=== PATIENT | female | born 2000 | race Two or more races ===

== ENCOUNTER 2024-02-22 11:43 | Observation (INO) | payer MEDICAID ==
--- NOTE | 2024-02-22 13:02 | DVH ---
Procedure: US BIOPHYSICAL PROFILE 02/22/2024 12:38 PM Indication: Nuchal Cord Comparison: None Technique: Sonogram of gravid uterus utilizing grayscale and color techniques. FINDINGS: Single living intrauterine gestation. Presentation: Cephalic Placenta: Posterior without previa or abruption heart rate: 124 bpm LISS: 13 cm Maternal cervix: Not visualized Other: The umbilical cord is seen draped around the neck Biophysical Profile: breathing score: 2 movement score: 2 tone: 2 Quantitative LISS score: 2 Total score: 8/8 IMPRESSION: 1. Single living as above. 2. Biophysical profile score: 8/8. 3. Nuchal cord.
--- NOTE | 2024-02-22 13:42 | DVHDS2 ---
Physician Discharge Progress N Final Diagnosis: double nuchal cord Operations or Procedures: Operations or Procedures nst,sono Condition on Discharge: Good Disposition: Home Discharge Instructions: Diet: Regular Activity: Light activity Medications: na Follow Up Care: Specialist: 4d Discharge Statement: "Patient was advised to return to the ER or call 911 if any headaches, dizziness, shortness of breath, chest pain, abdominal pain, bleeding, fevers, or worsening of medical condition. Patient was counseled about treatment plan, medications, possible side effects, patientverbalized understanding. All questions were answered to the best of my ability. This discharge took greater then 30 minutes in planning, reviewing documentation, counseling the patient, and discussing with other team members." JOHANA FRANCISCO DO Feb 22, 2024 13:42
== END 2024-02-22 14:10 | disposition home or self-care (01) ==
LOC: LDRP 11:43 → UNDOADMOB 11:43 → LDRP 12:23
PROVIDERS: ADMIT Obstetrics & Gynecology; ATTEND Obstetrics & Gynecology
DX: O69.81X0 Labor and delivery complicated by cord around neck, without compression, not applicable or unspecified (principal); Z79.899 Other long term (current) drug therapy; Z98.890 Other specified postprocedural states; Z3A.34 34 weeks gestation of pregnancy
CPT/HCPCS: 59025; 76818; 81002; 94760; G0378

== ENCOUNTER 2024-02-29 11:26 | Observation (INO) | payer MEDICAID ==
--- NOTE | 2024-02-29 12:47 | DVH ---
BIOPHYSICAL PROFILE HISTORY: NUCHAL TECHNIQUE: Multiple transabdominal real-time grayscale sonographic images through the gravid uterus of the fetus with duplex Doppler color flow and M-mode spectral analysis FINDINGS: BIOPHYSICAL PROFILE: breathing score: 2 movement score: 2 tone score: 2 Quantitative LISS score: 2 (LISS: 11.9 Cm.) Total score: 8/8 Single live fetus in cephalic presentation. heart rate 166 beats per minute. Posterior placenta without previa or abruption No evidence for nuchal cord on the provided images. IMPRESSION: 1. Biophysical profile score: 8/8 2. No evidence for nuchal cord on the provided images. HS:Y
[2024-02-29] MEDS ORDERED: PREN-96 PO (13:01)
--- NOTE | 2024-02-29 13:54 | DVHDS2 ---
Physician Discharge Progress N Final Diagnosis: nuchal cord Operations or Procedures: Operations or Procedures nst,sono Condition on Discharge: Good Disposition: Home Discharge Instructions: Diet: Regular Activity: No Restrictions, As Tolerated Medications: na Follow Up Care: Specialist: 1w Discharge Statement: "Patient was advised to return to the ER or call 911 if any headaches, dizziness, shortness of breath, chest pain, abdominal pain, bleeding, fevers, or worsening of medical condition. Patient was counseled about treatment plan, medications, possible side effects, patientverbalized understanding. All questions were answered to the best of my ability. This discharge took greater then 30 minutes in planning, reviewing documentation, counseling the patient, and discussing with other team members." JOHANA FRANCISCO DO Feb 29, 2024 13:54
== END 2024-02-29 13:09 | disposition home or self-care (01) ==
LOC: UNDOADMOB 11:26 → LDRP 11:26 → UNDODISOB 13:09
PROVIDERS: ADMIT Obstetrics & Gynecology; ATTEND Obstetrics & Gynecology
DX: O69.81X0 Labor and delivery complicated by cord around neck, without compression, not applicable or unspecified (principal); Z3A.35 35 weeks gestation of pregnancy; Z79.899 Other long term (current) drug therapy
CPT/HCPCS: 59025; 76818; 81002; 94760; G0378

== ENCOUNTER 2024-03-08 09:30 | Observation (INO) | payer MEDICAID ==
[~2024-03-08 09:30] MED LIST: PREN-96 PO
--- NOTE | 2024-03-08 11:20 | DVH ---
CLINICAL HISTORY: Nuchal Cord COMPARISON: US BIOPHYSICAL PROFILE on DOS: 02/29/24, US BIOPHYSICAL PROFILE on DOS: 02/22/24 TECHNIQUE: biophysical profile was performed. Transabdominal sonographic images of the fetus we re obtained. FINDINGS: The fetus is in cephalic position. heart rate measures 136 BPM. Amniotic fluid index measures 13.9 cm. The placenta is fundal in position. No nuchal cord visualized. BPP profile is an overall score of 8/8, with 2/2 points for breathing, with at least one episode of breathing over a 30 second duration during a 30 minute observation, 2/2 points for m ovements, with 3 or more discrete body or limb movements, 2/2 points for tone, with one or more episodes of extremity extension with return to flexion, or opening and closing of hand, and 2/ 2 points for amniotic fluid, with at least 1 pocket of amniotic fluid that measures 2 cm in 2 perpend icular planes. IMPRESSION: 1. BPP score of 8/8. 2. No nuchal cord visualized.
--- NOTE | 2024-03-08 18:13 | DVHDS2 ---
Physician Discharge Progress N Final Diagnosis: testing for nuchal cord that has now resolved Operations or Procedures: Operations or Procedures 24yo IUP@36.3wks, +FM/denies UCs/VB VSS UA wnl NST reactive BPP wnl FKC/PTL precautions reviewed Other Interventions Other Interventions [address] [address] Ph: [phone] DIAGNOSTIC IMAGING Diagnostic Imaging Report : [id number] Signed PATIENT: LISA BANKS ACCT: [id number] UNIT: [id number] : 2000 LOC: [facility] ROOM / BED: [facility] / A AGE / SEX: 24 / F ADM STATUS: ADM IN SERVICE 1035 ORDERING PHYSICIAN: KARLOS ANN CNM PROCEDURE(s): BPP - BIOPHYSICAL PROFILE REASON: Nuchal Cord ORDER NUMBER(s): [id number], ACCESSION NUMBER(s): [id number] CLINICAL HISTORY: Nuchal Cord COMPARISON: US BIOPHYSICAL PROFILE on DOS: 02/29/24, US BIOPHYSICAL PROFILE on DOS: 02/22/24 TECHNIQUE: biophysical profile was performed. Transabdominal sonographic images of the fetus were obtained. FINDINGS: The fetus is in cephalic position. heart rate measures 136 BPM. Amniotic fluid index measures 13.9 cm. The placenta is fundal in position. No nuchal cord visualized. BPP profile is an overall score of 8/8, with 2/2 points for breathing, with at least one episode of breathing over a 30 second duration during a 30 minute observation, 2/2 points for movements, with 3 or more discrete body or limb movements, 2/2 points for tone, with one or more ep isodes of extremity extension with return to flexion, or opening and closing of hand, and 2/2 points for amniotic fluid, with at least 1 pocket of amniotic fluid that measures 2 cm in 2 perpendicular planes. IMPRESSION: 1. BPP score of 8/8. 2. No nuchal cord visualized. ATED BY: MINA MANN DO DICTATED DATE/TIME: 03/08/24 1118 SIGNED BY: MINA MANN DO SIGNED DATE/TIME: 03/08/24 1118 CC: Condition on Discharge: Stable Disposition: Home Discharge Instructions: Diet: Regular Activity: No Restrictions, As Tolerated Medications: see med list Follow Up Care: Specialist: f/u with Dr. Watters in office as scheduled Discharge Statement: "Patient was advised to return to the ER or call 911 if any headaches, dizziness, shortness of breath, chest pain, abdominal pain, bleeding, fevers, or worsening of medical condition. Patient was counseled about treatment plan, medications, possible side effects, patientverbalized understanding. All questions were answered to the best of my ability. This discharge took greater then 30 minutes in planning, reviewing documentation, counseling the patient, and discussing with other team members." KARLOS ANN [facility] Mar 08, 2024 18:13
== END 2024-03-08 11:58 | disposition home or self-care (01) ==
LOC: LDRP 10:00 → UNDOADMOB 10:00 → LDRP 10:37
PROVIDERS: ADMIT Obstetrics & Gynecology; ATTEND Obstetrics & Gynecology
DX: Z36.89 Encounter for other specified antenatal screening (principal); Z3A.36 36 weeks gestation of pregnancy; Z79.899 Other long term (current) drug therapy
CPT/HCPCS: 59025; 76818; 81002; 94760; G0378

== ENCOUNTER 2024-03-23 12:55 | Observation (INO) | payer MEDICAID ==
--- NOTE | 2024-03-23 14:48 | DVH ---
BIOPHYSICAL PROFILE HISTORY: double nuchal TECHNIQUE: Multiple transabdominal real-time grayscale sonographic images through the gravid uterus of the fetus with duplex Doppler color flow and M-mode spectral analysis FINDINGS: BIOPHYSICAL PROFILE: breathing score: 2 movement score: 2 tone score: 2 Quantitative LISS score: 2 (LISS: 14 Cm.) Total score: 8 The cervix was not seen Single live fetus in cephalic presentation. heart rate 152 beats per minute. Grade III fundal placenta without previa or abruption IMPRESSION: Biophysical profile score: 8 Possible double nuchal cord.
--- NOTE | 2024-03-23 16:34 | DVHDS2 ---
Physician Discharge Progress N Final Diagnosis: Encounter for surveillance Suspected nuchal cord x 2 Operations or Procedures: Operations or Procedures NST/BPP/LISS [address] [address] Ph: [phone] DIAGNOSTIC IMAGING Diagnostic Imaging Report : [id number] Signed PATIENT: LISA BANKS ACCT: [id number] UNIT: [id number] : 2000 LOC: [facility] ROOM / BED: [facility] / A AGE / SEX: 24 / F ADM STATUS: ADM IN SERVICE 1309 ORDERING PHYSICIAN: SUYAPA CASTAÑEDA DO PROCEDURE(s): BPP - BIOPHYSICAL PROFILE REASON: double nuchal ORDER NUMBER(s): [id number], ACCESSION NUMBER(s): [id number] BIOPHYSICAL PROFILE HISTORY: double nuchal TECHNIQUE: Multiple transabdominal real-time grayscale sonographic images through the gravid uterus of the fetus with duplex Doppler color flow and M-mode spectral analysis FINDINGS: BIOPHYSICAL PROFILE: breathing score: 2 movement score: 2 tone score: 2 Quantitative LISS score: 2 (LISS: 14 Cm.) Total score: 8 The cervix was not seen Single live fetus in cephalic presentation. heart rate 152 beats per mi nute. Grade III fundal placenta without previa or abruption IMPRESSION: Biophysical profile score: 8 Possible double nuchal cord. Condition on Discharge: Stable Disposition: Home Discharge Instructions: Diet: Regular Activity: No Restrictions, As Tolerated Follow Up/Referral: as scheduled Medications: N/A Follow Up Care: Discharge Statement: "Patient was advised to return to the ER or call 911 if any headaches, dizziness, shortness of breath, chest pain, abdominal pain, bleeding, fevers, or worsening of medical condition. Patient was counseled about treatment plan, medications, possible side effects, patientverbalized understanding. All questions were answered to the best of my ability. This discharge took greater then 30 minutes in planning, reviewing documentation, counseling the patient, and discussing with other team members." SUYAPA CASTAÑEDA DO Mar 23, 2024 16:34
== END 2024-03-23 14:41 | disposition home or self-care (01) ==
LOC: LDRP 12:55
PROVIDERS: ADMIT Obstetrics & Gynecology; ATTEND Obstetrics & Gynecology
DX: Z36.89 Encounter for other specified antenatal screening (principal); Z3A.38 38 weeks gestation of pregnancy; Z79.899 Other long term (current) drug therapy
CPT/HCPCS: 59025; 76818; 81002; 94760; G0378

== ENCOUNTER 2024-03-27 15:10 | Observation (INO) | payer MEDICAID ==
--- NOTE | 2024-03-27 16:14 | DVH ---
BIOPHYSICAL PROFILE HISTORY: nuchal x 2 TECHNIQUE: Multiple transabdominal real-time grayscale sonographic images through the gravid uterus of the fetus with duplex Doppler color flow and M-mode spectral analysis FINDINGS: BIOPHYSICAL PROFILE: breathing score: 2 movement score: 2 tone score: 2 Quantitative LISS score: 2 (LISS: 12.6 Cm.) Total score: 8/8 The cervix is not seen Single live fetus in cephalic presentation. heart rate 145 beats per minute. Grade 3 fundal placenta without previa or abruption Biophysical profile score 8/8 corresponding to an ASHER of 04/02/24 IMPRESSION: Biophysical profile score: 8/8
[2024-03-27 17:47] LABS: Basophils # (auto) 0 10 ^3/uL (0-0.2); Basophils % (auto) 0.3 % (0.0-2.0); Eosinophils # (auto) 0.2 10 ^3/uL (0-0.8); Eosinophils % (auto) 2.1 % (0.0-7.0); Hematocrit 40.6 % (36.0-46.0); Hemoglobin 14.1 g/dL (12.2-16.2); Lymphocytes # (auto) 1.9 10 ^3/uL (0.4-5.4); Mean Corpuscular Hemoglobin 32.5 pg (28.0-32.0); Mean Corpuscular Hgb Conc. 34.7 g/dL (32.0-36.0); Mean Corpuscular Volume 93.6 fL (80.0-100.0); Monocytes # (auto) 0.6 10 ^3/uL (0-1.3); Monocytes % (auto) 5.8 % (0.0-12.0); Neutrophils # (auto) 7.1 10 ^3/uL (1.6-8.6); Neutrophils % (auto) 72.8 % (37.0-80.0); Nucleated Red Blood Cells % 0.1 %; Platelet Count (auto) 288 10^3/uL (140-450); Red Blood Cells 4.34 10^6/uL (4.0-5.20); Red Cell Distribution Width 13.6 % (11.8-14.3); White Blood Cell 9.7 10^3/uL (4.4-10.8)
[2024-03-27 18:00] LABS: INR 0.9 (0.9-1.15); Partial Thromboplastin Time 27.3 SEC (24.5-34.5); Prothrombin Time 9.6 sec (9.3-11.8)
[2024-03-27 18:11] LABS: Alanine Aminotransferase 29 U/L (7-40); Albumin 3.8 g/dL (3.2-4.8); Anion Gap 7 (5-15); Aspartate Aminotransferase 22 U/L (13-40); BUN/Creatinine Ratio 12.5 (10.0-20.0); Bilirubin, Total 0.4 mg/dL (0.2-1.0); Calcium 9.7 mg/dL (8.7-10.4); Carbon Dioxide 23 mmol/L (20-31); Glucose 79 mg/dL (74-106); Potassium 4.1 mmol/L (3.5-5.1); Sodium 138 mmol/L (136-145); Total Protein 6.4 g/dL (5.7-8.2); Uric Acid 4.9 mg/dL (3.1-7.8)
[2024-03-27 18:12] LABS: Alkaline Phosphatase 166 U/L (46-116); Blood Urea Nitrogen 8 mg/dL (9-23); Chloride 108 mmol/L (98-107)
[2024-03-27 18:26] LABS: Urine Bacteria None Seen /hpf (None Seen)
[2024-03-27 19:02] LABS: Protein, Urine 7.7 mg/dL (1-14)
[2024-03-27 19:04] LABS: Creatinine, Urine 60.82 mg/dL (30.0-125.0); Urine Protein/Creatinine Ratio 0.13
[2024-03-27 19:13] LABS: Amphetamine Screen, Urine Neg (NEGATIVE); Barbiturate Scree,Urine Neg (NEGATIVE); Benzodiazephine Screen, Urine Neg (NEGATIVE); Cannabinoid Screen, Urine Neg (NEGATIVE); Cocaine Screen, Urine Neg (NEGATIVE); Opiate Scree,Urine Neg (NEGATIVE); Phencyclidine Screen, Urine Neg (NEGATIVE)
[2024-03-27 19:14] LABS: Urine Blood Negative /uL (Negative); Urine Clarity Clear (Clear); Urine Color Light-Yellow (Yellow); Urine Protein, UAD Negative (Negative); Urine Specific Gravity 1.009 (1.001-1.035); Urine Squamous Epithelial Cell FEW /hpf (<5); Urine Urobilinogen Normal (Negative); Urine WBC 1 /hpf (0 - 5)
--- NOTE | 2024-03-27 20:15 | DVHDS2 ---
Physician Discharge Progress N Final Diagnosis: testing Operations or Procedures: Operations or Procedures 24yo IUP@39.1wks presents for NST/BPP for nuchal cord x2 at previous sono. +FM, denies UCs/LOF/VB/MABRY/vision changes/RUQ pain. VSS, initial BPs elevated but normotensive after cuff was adjusted NST reactive BPP wnl, no nuchal cord seen kick counts and Preeclampsia warning signs reviewed. Labor precautions given and when to return to the hospital. Dr. Watters consulted, wants pt to f/u in 3 days Laboratory Tests Test 03/27/24 16:40 03/27/24 17:33 Range/Units Urine Color Light-yellow Yellow Urine Clarity Clear Clear Urine pH 6.0 5.0-9.0 Urine Specific Mode 1.009 1.001-1.035 Urine Protein Negative Negative Urine Ketones Negative Negative Urine Blood Negative Negative /uL Urine Nitrite Negative Negative Urine Bilirubin Negative Negative Urine Urobilinogen Normal Negative mg/dL Urine Leukocyte Esterase Negative Negative /uL Urine RBC <1 0 - 4 /hpf Urine WBC 1 0 - 5 /hpf Urine Squamous Epithelial Cells Few <5 /hpf Urine Bacteria None seen None Seen /hpf Urine Creatinine 60.82 30.0-125.0 mg/dL Urine Protein/Creatinine Ratio 0.13 Urine Glucose Normal Normal mg/dL Urine Total Protein 7.7 1-14 mg/dL Urine Opiates Screen Neg NEGATIVE Urine Fentanyl Screen Neg NEGATIVE Urine Barbiturates Screen Neg NEGATIVE Urine Phencyclidine Screen Neg NEGATIVE Urine Amphetamines Screen Neg NEGATIVE Urine Benzodiazepines Screen Neg NEGATIVE Urine Cocaine Screen Neg NEGATIVE Urine Cannabinoids Screen Neg NEGATIVE White Blood Count 9.7 4.4-10.8 10^3/uL Red Blood Count 4.34 4.0-5.20 10^6/uL Hemoglobin 14.1 12.2-16.2 g/dL Hematocrit 40.6 36.0-46.0 % Mean Corpuscular Volume 93.6 80.0-100.0 fL Mean Corpuscular Hemoglobin 32.5 H 28.0-32.0 pg Mean Corpuscular Hemoglobin Concent 34.7 32.0-36.0 g/dL Red Cell Distribution Width 13.6 11.8-14.3 % Platelet Count 288 140-450 10^3/uL Mean Platelet Volume 8.6 6.9-10.8 fL Neutrophils (%) (Auto) 72.8 37.0-80.0 % Lymphocytes (%) (Auto) 19.0 10.0-50.0 % Monocytes (%) (Auto) 5.8 0.0-12.0 % Eosinophils (%) (Auto) 2.1 0.0-7.0 % Basophils (%) (Auto) 0.3 0.0-2.0 % Neutrophils # (Auto) 7.1 1.6-8.6 10 ^3/uL Lymphocytes # (Auto) 1.9 0.4-5.4 10 ^3/uL Monocytes # (Auto) 0.6 0-1.3 10 ^3/uL Eosinophils # (Auto) 0.2 0-0.8 10 ^3/uL Basophils # (Auto) 0 0-0.2 10 ^3/uL Nucleated Red Blood Cells 0.1 % Prothrombin Time 9.6 9.3-11.8 sec Prothrombin Time INR 0.90 0.9-1.15 Activated Partial Thromboplast Time 27.3 24.5-34.5 SEC D-Dimer, Quantitative 1.72 H 0.0-0.49 mg/L FEU Sodium Level 138 136-145 mmol/L Potassium Level 4.1 3.5-5.1 mmol/L Chloride Level 108 H 98-107 mmol/L Carbon Dioxide Level 23 20-31 mmol/L Anion Gap 7 5-15 Blood Urea Nitrogen 8 L 9-23 mg/dL Creatinine 0.64 0.550-1.02 mg/dL Glomerular Filtration Rate Calc 126 >90 mL/min BUN/Creatinine Ratio 12.5 10.0-20.0 Serum Glucose 79 74-106 mg/dL Uric Acid 4.9 3.1-7.8 mg/dL Calcium Level 9.7 8.7-10.4 mg/dL Total Bilirubin 0.4 0.2-1.0 mg/dL Aspartate Amino Transferase (AST) 22 13-40 U/L Alanine Aminotransferase (ALT) 29 7-40 U/L Alkaline Phosphatase 166 H 46-116 U/L Total Protein 6.4 5.7-8.2 g/dL Albumin 3.8 3.2-4.8 g/dL Condition on Discharge: Stable Disposition: Home Discharge Instructions: Diet: Regular Activity: No Restrictions, As Tolerated Medications: CONTINUE TAKING ALL CURRENT MEDICATIONS PREVIOUSLY PRESCRIBED BY DR WATTERS. Follow Up Care: Specialist: f/u in 3 days Discharge Statement: "Patient was advised to return to the ER or call 911 if any headaches, dizziness, shortness of breath, chest pain, abdominal pain, bleeding, fevers, or worsening of medical condition. Patient was counseled about treatment plan, medications, possible side effects, patientverbalized understanding. All questions were answered to the best of my ability. This discharge took greater then 30 minutes in planning, reviewing documentation, counseling the patient, and discussing with other team members." KARLOS ANN [facility] Mar 27, 2024 20:15
== END 2024-03-27 19:47 | disposition home or self-care (01) ==
LOC: LDRP 15:10 → UNDOADMOB 15:10 → LDRP 15:19 → UNDODISOB 19:47
PROVIDERS: ADMIT Obstetrics & Gynecology; ATTEND Obstetrics & Gynecology
DX: O69.81X0 Labor and delivery complicated by cord around neck, without compression, not applicable or unspecified (principal); Z3A.39 39 weeks gestation of pregnancy; Z79.899 Other long term (current) drug therapy; Z98.890 Other specified postprocedural states
CPT/HCPCS: 36415; 59025; 76818; 80053; 80307; 81001; 81002; 82570; 84156; 84550; 85025; 85379; 85610; 85730; 94760; G0378

== ENCOUNTER 2024-03-30 11:10 | Observation (INO) | payer MEDICAID ==
--- NOTE | 2024-03-30 12:10 | DVH ---
Procedure: US BIOPHYSICAL PROFILE 03/30/2024 11:21 AM Indication: PIH Comparison: US BIOPHYSICAL PROFILE on DOS: 03/27/24, US BIOPHYSICAL PROFILE on DOS: 03/23/24, US BIOPHY SICAL PROFILE on DOS: 03/08/24 Technique: Sonogram of gravid uterus utilizing grayscale and color techniques. FINDINGS: Single living intrauterine gestation. Presentation: Cephalic Placenta: Posterior, no previa or abruption heart rate: 130 bpm LISS: 4.5 cm, DVP: 4.8 cm Maternal cervix: Not visualized Other: No nuchal cord in the current exam. Biophysical Profile: breathing score: 2 movement score: 2 tone: 2 Quantitative LISS score: 2 Total score: 8/8 IMPRESSION: 1. Single living as above. 2. Biophysical profile score: 8/8.
[2024-03-30 12:43] LABS: Basophils # (auto) 0 10 ^3/uL (0-0.2); Basophils % (auto) 0.5 % (0.0-2.0); Eosinophils # (auto) 0.2 10 ^3/uL (0-0.8); Eosinophils % (auto) 2.8 % (0.0-7.0); Hematocrit 38.5 % (36.0-46.0); Hemoglobin 13.5 g/dL (12.2-16.2); Lymphocytes # (auto) 1.7 10 ^3/uL (0.4-5.4); Lymphocytes % (auto) 19.4 % (10.0-50.0); Mean Corpuscular Hemoglobin 32.9 pg (28.0-32.0); Mean Corpuscular Hgb Conc. 35.2 g/dL (32.0-36.0); Mean Corpuscular Volume 93.4 fL (80.0-100.0); Monocytes # (auto) 0.7 10 ^3/uL (0-1.3); Monocytes % (auto) 8.3 % (0.0-12.0); Platelet Count (auto) 288 10^3/uL (140-450); Red Blood Cells 4.12 10^6/uL (4.0-5.20); Red Cell Distribution Width 13.4 % (11.8-14.3); White Blood Cell 8.6 10^3/uL (4.4-10.8)
[2024-03-30 12:50] LABS: INR 0.89 (0.9-1.15); Partial Thromboplastin Time 27.1 SEC (24.5-34.5); Prothrombin Time 9.5 sec (9.3-11.8)
[2024-03-30 12:59] LABS: Alanine Aminotransferase 21 U/L (7-40); Albumin 3.5 g/dL (3.2-4.8); Anion Gap 8 (5-15); Aspartate Aminotransferase 21 U/L (13-40); BUN/Creatinine Ratio 14.3 (10.0-20.0); Calcium 9.6 mg/dL (8.7-10.4); Carbon Dioxide 21 mmol/L (20-31); Glucose 83 mg/dL (74-106); Potassium 3.8 mmol/L (3.5-5.1); Sodium 138 mmol/L (136-145); Uric Acid 5.2 mg/dL (3.1-7.8)
[2024-03-30 13:00] LABS: Bilirubin, Total 0.3 mg/dL (0.2-1.0); Total Protein 5.9 g/dL (5.7-8.2)
[2024-03-30 13:05] LABS: Alkaline Phosphatase 161 U/L (46-116); Blood Urea Nitrogen 8 mg/dL (9-23); Chloride 109 mmol/L (98-107)
[2024-03-30 13:48] LABS: Protein, Urine 8.3 mg/dL (1-14)
[2024-03-30 13:51] LABS: Creatinine, Urine 58.58 mg/dL (30.0-125.0); Urine Protein/Creatinine Ratio 0.14
[2024-03-30 13:53] LABS: Urine Blood Negative /uL (Negative); Urine Clarity Turbid (Clear); Urine Color Light-Yellow (Yellow); Urine Mucus FEW (None Seen); Urine Protein, UAD Negative (Negative); Urine Sperm PRESENT /hpf (None Seen); Urine Squamous Epithelial Cell MOD /hpf (<5); Urine Urobilinogen Normal (Negative); Urine WBC 6 /hpf (0 - 5)
[2024-03-30 13:54] LABS: Amphetamine Screen, Urine Neg (NEGATIVE); Barbiturate Scree,Urine Neg (NEGATIVE); Benzodiazephine Screen, Urine Neg (NEGATIVE); Cannabinoid Screen, Urine Neg (NEGATIVE); Cocaine Screen, Urine Neg (NEGATIVE); Opiate Scree,Urine Neg (NEGATIVE); Phencyclidine Screen, Urine Neg (NEGATIVE)
[2024-03-30 13:55] LABS: Urine Bacteria None Seen /hpf (None Seen)
--- NOTE | 2024-03-31 07:12 | DVHDS2 ---
Physician Discharge Progress N Final Diagnosis: pih ,nuchal cord Operations or Procedures: Operations or Procedures nst,sono Condition on Discharge: Good Disposition: Home Discharge Instructions: Diet: Regular Activity: No Restrictions, As Tolerated Medications: na Follow Up Care: Specialist: fu 2days for induction Discharge Statement: "Patient was advised to return to the ER or call 911 if any headaches, dizziness, shortness of breath, chest pain, abdominal pain, bleeding, fevers, or worsening of medical condition. Patient was counseled about treatment plan, medications, possible side effects, patientverbalized understanding. All questions were answered to the best of my ability. This discharge took greater then 30 minutes in planning, reviewing documentation, counseling the patient, and discussing with other team members." JOHANA FRANCISCO DO Mar 31, 2024 07:12
== END 2024-03-30 14:20 | disposition short-term general hospital (02) ==
LOC: LDRP 11:10
PROVIDERS: ADMIT Obstetrics & Gynecology; ATTEND Obstetrics & Gynecology
DX: O69.81X0 Labor and delivery complicated by cord around neck, without compression, not applicable or unspecified (principal); O13.3 Gestational [pregnancy-induced] hypertension without significant proteinuria, third trimester; Z3A.39 39 weeks gestation of pregnancy; Z79.899 Other long term (current) drug therapy
CPT/HCPCS: 36415; 59025; 76818; 80053; 80307; 81001; 81002; 82570; 84156; 84550; 85025; 85610; 85730; 94760; G0378

== ENCOUNTER 2024-04-01 04:39 | Inpatient (IN) | payer MEDICAID ==
[~2024-04-01] VITALS: Ht 165.1 cm; Wt 106.1 kg
[2024-04-01] MEDS ORDERED: NALBUPHINE HCL 10 MG/1ml INJECTION IM PRN (22:45)
[2024-04-01] MEDS ORDERED: NALBUPHINE HCL 10 MG/1ml INJECTION IV PRN (22:45)
[2024-04-01 23:15] LABS: Basophils # (auto) 0.1 10 ^3/uL (0-0.2); Basophils % (auto) 0.6 % (0.0-2.0); Eosinophils # (auto) 0.2 10 ^3/uL (0-0.8); Eosinophils % (auto) 2.4 % (0.0-7.0); Hemoglobin 13.7 g/dL (12.2-16.2); Lymphocytes # (auto) 2.1 10 ^3/uL (0.4-5.4); Lymphocytes % (auto) 21.8 % (10.0-50.0); Mean Corpuscular Hemoglobin 32.2 pg (28.0-32.0); Mean Corpuscular Hgb Conc. 34.2 g/dL (32.0-36.0); Mean Corpuscular Volume 94.2 fL (80.0-100.0); Monocytes # (auto) 0.7 10 ^3/uL (0-1.3); Monocytes % (auto) 6.9 % (0.0-12.0); Neutrophils # (auto) 6.5 10 ^3/uL (1.6-8.6); Neutrophils % (auto) 68.3 % (37.0-80.0); Platelet Count (auto) 271 10^3/uL (140-450); Red Blood Cells 4.25 10^6/uL (4.0-5.20); Red Cell Distribution Width 13.5 % (11.8-14.3); White Blood Cell 9.5 10^3/uL (4.4-10.8)
[2024-04-01 23:17] LABS: Urine Bacteria FEW /hpf (None Seen); Urine Blood Negative /uL (Negative); Urine Clarity Turbid (Clear); Urine Color Yellow (Yellow); Urine Mucus FEW (None Seen); Urine Protein, UAD TRACE (Negative); Urine Specific Gravity 1.027 (1.001-1.035); Urine Squamous Epithelial Cell MOD /hpf (<5); Urine Urobilinogen 2 mg/dL (Negative); Urine WBC 8 /hpf (0 - 5); Urine pH 7.5 (5.0-9.0)
--- NOTE | 2024-04-01 23:23 | DVHHP2 ---
OB CC & HPI Date Date of Admission: Apr 01, 2024 Patient Identification: : 1 Para: 0 EDC: Apr 02, 2024 EGA: 39w 6d Chief Complaints: Reason for admission: induction of labor Indication for induction: medical complication Admission Nurse Assessment Rev: Yes History of Present Complaints The patient is a 24-year-old female, , para 0, history of elevated BP during the past week. She is 39weeks and 6days based on LMP c/w 2nd trimester ultrasound with an estimated due date of 04/02/2024. Scheduled for IOL due to elevated BP as stated above Past Medical History Cardiac: No pertinent Hx Pulmonary: No pertinent Hx Central Nervous System: No pertinent Hx GI: No pertinent Hx Hemotology/Oncology: No pertinent Hx Hepatobiliary: No pertinent Hx Psychiatric: No pertinent Hx Musculoskeletal: No pertinent Hx Rheumotologic: No pertinent Hx Infectious Disease: No peritnent Hx ENT: No pertinent Hx Renal/: No pertinent Hx Endocrine: No pertinent Hx Dermatology: No pertinent Hx Past Surgical History: No pertinent Hx OB History OB History Care: Good Care Ultrasounds: Normal mid trimester US Obstetrical Complications: Pre-eclampsia Medical Complications: Cardiovascular Allergies: Coded Allergies: NO KNOWN ALLERGIES (Unverified , 01/29/10) Home Meds Reported Medications Vit W/ Ferrous Fumara ( One Daily) Daily Tab, 1 TAB PO DAILY, #90 TAB 3 Refills 02/29/24 Current Medications Current Medications Medications (Trade) Dose Ordered Sig/Cristy Route PRN Reason Start Time Stop Time Status Last Admin Lactated Ringer's 1,000 ml @ 125 mls/hr Q8H IV 04/01/24 22:45 Nalbuphine HCl (Nubain) 10 mg Q4HP PRN IM MODERATE PAIN (4-6 PAIN SCALE) 04/01/24 22:45 Nalbuphine HCl (Nubain) 10 mg Q4HP PRN IV MODERATE PAIN (4-6 PAIN SCALE) 04/01/24 22:45 Witch Mary (Tucks) 1 pad PRN PRN TOP PERINEAL AREA DISCOMFORT 04/01/24 22:45 Sodium Lauryl Sulfate (Phisoderm) 240 ml PRN PRN TOP PERINEAL AREA DISCOMFORT 04/01/24 22:45 Benzocaine (Dermoplast) 1 applic PRN PRN TOP PERINEAL AREA DISCOMFORT 04/01/24 22:45 Misoprostol (Cytotec) 50 mcg Q4HPRN PRN PO CERVICAL RIPENING 04/01/24 22:45 Lidocaine HCl (Xylocaine) 20 ml ONCE PRN IJ PERINEAL AREA DISCOMFORT 04/01/24 22:45 Family & Social History Family/Social History Past Family/Social History: non - contributory Blood Type: O+ Rubella: not immune RPR/VDRL: Negative GBS Status: Negative HBsAG: Negative Review of Systems Constitutional: No symptom reported Ears, Nose, & Throat: No symptom reported Eyes: No symptom reported Pulmonary/Respiratory: No symptom reported Cardiovascular: No symptom reported Gastrointestinal: No symptom reported Genitourinary: No symptom reported Musculoskeletal: No symptom reported Skin: No symptom reported Psychiatric: No symptom reported Endocrine: No symptom reported Hemotologic/Lymphatic: No symptom reported OB Admission Exam Physical Exam Cervical Dilatation: 1cm Effacement: 25% Station: -2 (VE by RN) Membranes: Intact Heart Rate: 140's Accelerations: Accelerations Present Decelerations: No Decelerations Jail Variability: Average (6-25) Contractions on Admission: 6-10 Minutes Apart Date/Time Contractions Began: 04/01/24 Frequency of Contractions: irregular Duration: 60 Intensity: Mild OB Plan Plan Admitting Diagnosis: IUP at 39w 6d Gestational HTN vs Pre Eclampsia PIH Plan: Induction Induction Methd: Misoprostol protocol Other Plan: IOL process, cervical ripening with medication, cervical ripening balloon, oxyt ocin etc including the risks, benefits and options discussed with the patient, her partner and her parents Informed consent obtained. Risk of pain, bleeding, infection, discussed with the patient and family Consent for possible blood transfusion obtained. All questions answered. Admit to Place for scheduled IOL Routine L&D admission orders Misoprostol per protocol EFM per policy & protocol Intrauterine resuscitation PRN Labor analgesia PRN Encourage frequent position change and ambulation to facilitate labor & descent Supportive Care Anticipate KOLTON LEONARD CNM Apr 01, 2024 23:23
[2024-04-01 23:24] LABS: Protein, Urine 24.8 mg/dL (1-14)
[2024-04-01 23:27] LABS: Creatinine, Urine 158.77 mg/dL (30.0-125.0); Urine Protein/Creatinine Ratio 0.16
[2024-04-01 23:28] LABS: Amphetamine Screen, Urine Neg (NEGATIVE); Barbiturate Scree,Urine Neg (NEGATIVE); Benzodiazephine Screen, Urine Neg (NEGATIVE); Cannabinoid Screen, Urine Neg (NEGATIVE); Cocaine Screen, Urine Neg (NEGATIVE); Opiate Scree,Urine Neg (NEGATIVE); Phencyclidine Screen, Urine Neg (NEGATIVE)
[2024-04-01 23:30] LABS: Alanine Aminotransferase 24 U/L (7-40); Albumin 3.7 g/dL (3.2-4.8); Anion Gap 7 (5-15); Aspartate Aminotransferase 22 U/L (13-40); BUN/Creatinine Ratio 16.4 (10.0-20.0); Bilirubin, Total 0.4 mg/dL (0.2-1.0); Blood Urea Nitrogen 10 mg/dL (9-23); Calcium 9.6 mg/dL (8.7-10.4); Carbon Dioxide 22 mmol/L (20-31); Glucose 83 mg/dL (74-106); Potassium 3.9 mmol/L (3.5-5.1); Sodium 138 mmol/L (136-145); Total Protein 6.3 g/dL (5.7-8.2); Uric Acid 5.1 mg/dL (3.1-7.8)
[2024-04-01 23:39] LABS: INR 0.89 (0.9-1.15); Partial Thromboplastin Time 27.6 SEC (24.5-34.5); Prothrombin Time 9.5 sec (9.3-11.8)
[2024-04-01 23:40] LABS: Alkaline Phosphatase 170 U/L (46-116); Chloride 109 mmol/L (98-107)
[2024-04-02] MEDS: miSOPROStol 50 MCG per PRE-CUT 1/2 TAB PO PRN (00:25)
[2024-04-02] MEDS: LIDOCAINE 2%HCL (LOCAL ANESTH.) INJ 20ML MDV IJ PRN (00:26)
[2024-04-02] MEDS: PHISODERM TOP SOLN 240ML BTL TOP PRN (00:26)
[2024-04-02] MEDS: DERMOPLAST 60ML BOTTLE TOP PRN (00:26)
[2024-04-02] MEDS: WITCH HAZEL-GLYCERIN PAD TOP PRN (00:26)
[2024-04-02] MEDS: LACTATED RINGER'S 1,000 ML IV SCH (00:27)
--- NOTE | 2024-04-02 07:52 | DVHPN2 ---
CNM Labor Progress Note Date and Time Seen Date Seen: Apr 02, 2024 Time Seen: 07:30 Subjective Patient reports: No new complaints Monitoring Method Monitoring Method: External Heart Rate Heart Rate Baseline: 125 Heart Rate Variability: Moderate Presence of FHR Accelerations: Yes Presence of FHR Decelerations: No Changes in Trends of Patterns: No Are all 5 Components of the FH: Yes Contractions Contractions Frequency: Other (2-5min) Duration of Contraction: 70 Contractions Intensity: Mild Contractions Resting Tone: Relaxed Membranes Membranes: Intact Vaginal Exam Vag Exam Deferred: No Vaginal Exam Dilation: 1 Vaginal Exam Effacement: 50 Vaginal Exam Station: -2 Vaginal Exam Presentation: VTX Vaginal Exam Show: None Medications Medications - Pitocin: No Medication - Epidural: No Medication - Other Misoprostol #1 @00:25 Lab Results Lab Results Current Medications Medications (Trade) Dose Ordered Sig/Cristy Start Time Stop Time Status Last Admin Dose Admin Lactated Ringer's 1,000 ml @ 125 mls/hr Q8H 04/01/24 22:45 04/02/24 07:41 125 MLS/HR Nalbuphine HCl (Nubain) 10 mg Q4HP PRN 04/01/24 22:45 Nalbuphine HCl (Nubain) 10 mg Q4HP PRN 04/01/24 22:45 Witch Mary (Tucks) 1 pad PRN PRN 04/01/24 22:45 04/02/24 00:26 1 PAD Sodium Lauryl Sulfate (Phisoderm) 240 ml PRN PRN 04/01/24 22:45 04/02/24 00:26 240 ML Benzocaine (Dermoplast) 1 applic PRN PRN 04/01/24 22:45 04/02/24 00:26 1 APPLIC Misoprostol (Cytotec) 50 mcg Q4HPRN PRN 04/01/24 22:45 04/02/24 07:41 50 MCG Lidocaine HCl (Xylocaine) 20 ml ONCE PRN 04/01/24 22:45 04/02/24 00:26 20 ML Laboratory Tests Test 04/01/24 22:52 04/01/24 22:30 Range/Units White Blood Count 9.5 4.4-10.8 10^3/uL Red Blood Count 4.25 4.0-5.20 10^6/uL Hemoglobin 13.7 12.2-16.2 g/dL Hematocrit 40.0 36.0-46.0 % Mean Corpuscular Volume 94.2 80.0-100.0 fL Mean Corpuscular Hemoglobin 32.2 H 28.0-32.0 pg Mean Corpuscular Hemoglobin Concent 34.2 32.0-36.0 g/dL Red Cell Distribution Width 13.5 11.8-14.3 % Platelet Count 271 140-450 10^3/uL Mean Platelet Volume 8.6 6.9-10.8 fL Neutrophils (%) (Auto) 68.3 37.0-80.0 % Lymphocytes (%) (Auto) 21.8 10.0-50.0 % Monocytes (%) (Auto) 6.9 0.0-12.0 % Eosinophils (%) (Auto) 2.4 0.0-7.0 % Basophils (%) (Auto) 0.6 0.0-2.0 % Neutrophils # (Auto) 6.5 1.6-8.6 10 ^3/uL Lymphocytes # (Auto) 2.1 0.4-5.4 10 ^3/uL Monocytes # (Auto) 0.7 0-1.3 10 ^3/uL Eosinophils # (Auto) 0.2 0-0.8 10 ^3/uL Basophils # (Auto) 0.1 0-0.2 10 ^3/uL Nucleated Red Blood Cells 0.0 % Prothrombin Time 9.5 9.3-11.8 sec Prothrombin Time INR 0.89 L 0.9-1.15 Activated Partial Thromboplast Time 27.6 24.5-34.5 SEC Fibrinogen 608 H 177-375 mg/dL D-Dimer, Quantitative 0.11 0.0-0.49 mg/L FEU Sodium Level 138 136-145 mmol/L Potassium Level 3.9 3.5-5.1 mmol/L Chloride Level 109 H 98-107 mmol/L Carbon Dioxide Level 22 20-31 mmol/L Anion Gap 7 5-15 Blood Urea Nitrogen 10 9-23 mg/dL Creatinine 0.61 0.550-1.02 mg/dL Glomerular Filtration Rate Calc 128 >90 mL/min BUN/Creatinine Ratio 16.4 10.0-20.0 Serum Glucose 83 74-106 mg/dL Uric Acid 5.1 3.1-7.8 mg/dL Calcium Level 9.6 8.7-10.4 mg/dL Total Bilirubin 0.4 0.2-1.0 mg/dL Aspartate Amino Transferase (AST) 22 13-40 U/L Alanine Aminotransferase (ALT) 24 7-40 U/L Alkaline Phosphatase 170 H 46-116 U/L Total Protein 6.3 5.7-8.2 g/dL Albumin 3.7 3.2-4.8 g/dL Rapid Plasma Reagin Pending Treponema pallidum Ab (TP-PA) Pending Hepatitis C Antibody Negative Negative Urine Color Yellow Yellow Urine Clarity Turbid H Clear Urine pH 7.5 5.0-9.0 Urine Specific [place] 1.027 1.001-1.035 Urine Protein Trace H Negative Urine Ketones Negative Negative Urine Blood Negative Negative /uL Urine Nitrite Negative Negative Urine Bilirubin Negative Negative Urine Urobilinogen 2 H Negative mg/dL Urine Leukocyte Esterase 2+ Negative /uL Urine RBC 1 0 - 4 /hpf Urine WBC 8 0 - 5 /hpf Urine Squamous Epithelial Cells Mod <5 /hpf Urine Bacteria Few H None Seen /hpf Urine Mucus Few None Seen Urine Creatinine 158.77 H 30.0-125.0 mg/dL Urine Protein/Creatinine Ratio 0.16 Urine Glucose Normal Normal mg/dL Urine Total Protein 24.8 H 1-14 mg/dL Urine Opiates Screen Neg NEGATIVE Urine Fentanyl Screen Neg NEGATIVE Urine Barbiturates Screen Neg NEGATIVE Urine Phencyclidine Screen Neg NEGATIVE Urine Amphetamines Screen Neg NEGATIVE Urine Benzodiazepines Screen Neg NEGATIVE Urine Cocaine Screen Neg NEGATIVE Urine Cannabinoids Screen Neg NEGATIVE Assessment Assessment IUP at 40w Gestational HTN vs pre Eclampsia IOL for above Category 1 FHR tracing Plan Plan Cervical Ripening Lainez Balloon inserted Continue misoprostol per protocol Continue EFM per policy Encourage frequent position change and ambulation to facilitate laboe Intrauterine resuscitation PRN Labor analgesia/anesthesia PRN Supportive care Plan discussed with: Patient, Spouse KOLTON LEONARD CNM Apr 02, 2024 07:52
[2024-04-02] MEDS: ePHEDrine SULFATE 50 MG/ML AMP IV ONE (19:15)
[2024-04-02] MEDS ORDERED: NALOXONE HCL 0.4 MG/ML VIAL IV ONE (19:15)
[2024-04-02] MEDS: LACTATED RINGER'S 1,000 ML IV ONE (19:15)
[2024-04-02] MEDS: LIDOCAINE HCL 2 %PF INJ 10ML AMP IJ ONE (19:40)
[2024-04-02] MEDS: ACETAMINOPHEN 325 MG TAB PO ONE (23:34)
[2024-04-02] MEDS: LACT. RINGERS/OXYTOCIN 20UNITS 1,000 ML IV SCH (23:48)
--- NOTE | 2024-04-03 02:58 | LDN2 ---
Labor and Delivery Note Date 04/03/24 Age 24 1 Para 1 EGA Term 40.1 wk Diagnosis Induction of labor, categ 2 FHR 2nd stage Vacuum assisted vaginal delivery macrosomia Maternal obesity Vaginal Delivery: VTX Vacuum Assisted: Yes Placenta: Spontaneous Sex: Male Weight 8lb 14oz Apgars 8/9 Nuchal Cord Transected: No (Nuchal cord x 1, reduced at perineum after delivery of the head) Amniotic Fluid: Clear Anesthesia Epidural Episiotomy: Yes Extension: No Repaired with Midline episiotomy repaired w/ 2-0 Chromic EBL 100 mL Labs Blood Bank 04/01/24 22:52: Blood Type O POSITIVE Complications None Comments/Significant Med Debby Consent obtained for operative vaginal delivery, Kiwi Vacuum Indication: Prolonged FHR deceleration in 2nd stage of labor, poor maternal pushing effort Findings: Pelvis adequate for vaginal delivery,bladder empty, Fetus OA, + moderate caput present, Kiwi vac applied +3 station. Two pulls with no pop offs, successful extraction Nuchal cord reduced after delivery of the head, followed by shoulders and body. No dystocia encountered. Placenta delivered spontaneously, 3V cord. Cord gases obtained (pending) EBL 100 mL. Episiotomy repaired 3-0 chromic, rectal exam WNL, rectum/anus not involved. Manual removal of intrauterine clots, uterus boggy. IV pitocin and IM methergine ordered. Baby and mom doing well, to couplet care SUYAPA CASTAÑEDA DO Apr 03, 2024 02:58
[2024-04-03] MEDS ORDERED: ceFAZolin 2 GM/D5W50ml 50 ML IV ONE (03:00)
[2024-04-03] MEDS: ceFAZolin 2 GM/D5W50ml 50 ML IV ONE (04:18)
[2024-04-03] MEDS: ROPIVACAINE HCL 200 ML ONE (05:15)
[2024-04-03] MEDS: METHYLERGONOVINE MALEATE 0.2 MG/ML AMP IM ONE (05:21)
[2024-04-03] MEDS: LACT. RINGERS/OXYTOCIN 20UNITS 500 ML IV ONE ×2 (05:26)
[2024-04-03] MEDS: fentaNYL CITRATE 100 MCG/2 ML VL IV ONE (05:27)
[2024-04-03] MEDS: fentaNYL CITRATE 100 MCG/2 ML VL ONE (05:28)
[2024-04-03 06:06] LABS: RPR Non Reactive (Non Reactive)
[2024-04-03] MEDS ORDERED: ONDANSETRON ODT 4 MG TAB PO PRN (06:15)
[2024-04-03 06:48] VITALS: BP 112/59; PULSE 109; RESP 16; TEMP 100.2; O2SAT 96
[2024-04-03 11:00] VITALS: BP 98/57; PULSE 106; RESP 16; TEMP 98.2; O2SAT 96
[2024-04-03 15:00] VITALS: BP 118/74; PULSE 99; RESP 16; TEMP 98.9; O2SAT 96
[2024-04-03 19:00] VITALS: BP 120/76; PULSE 92; RESP 16; TEMP 98; O2SAT 97
[2024-04-03] MEDS: ACETAMINOPHEN 325 MG TAB PO PRN (19:17)
[2024-04-03] MEDS: DOCUSATE SOD 100 MG CAP PO SCH (21:49)
[2024-04-03 23:00] VITALS: BP 123/73; PULSE 74; RESP 18; TEMP 97.9; O2SAT 97
[2024-04-04] MEDS: IBUPROFEN 600 MG TAB PO PRN (00:25)
[2024-04-04 03:00] VITALS: BP 130/86; PULSE 73; RESP 20; TEMP 98; O2SAT 97
[2024-04-04 03:56] LABS: Basophils # (auto) 0 10 ^3/uL (0-0.2); Basophils % (auto) 0.4 % (0.0-2.0); Eosinophils # (auto) 0.2 10 ^3/uL (0-0.8); Eosinophils % (auto) 1.6 % (0.0-7.0); Hematocrit 34.4 % (36.0-46.0); Hemoglobin 11.6 g/dL (12.2-16.2); Lymphocytes # (auto) 2.5 10 ^3/uL (0.4-5.4); Mean Corpuscular Hemoglobin 31.9 pg (28.0-32.0); Mean Corpuscular Hgb Conc. 33.7 g/dL (32.0-36.0); Mean Corpuscular Volume 94.8 fL (80.0-100.0); Monocytes % (auto) 7.8 % (0.0-12.0); Neutrophils # (auto) 8.8 10 ^3/uL (1.6-8.6); Neutrophils % (auto) 70.2 % (37.0-80.0); Platelet Count (auto) 219 10^3/uL (140-450); Red Blood Cells 3.63 10^6/uL (4.0-5.20); Red Cell Distribution Width 13.8 % (11.8-14.3); White Blood Cell 12.5 10^3/uL (4.4-10.8)
--- NOTE | 2024-04-04 08:18 | DVHDS2 ---
Obstetrics Discharge Summary Obstetrics Discharge Summary Date of Admission: Apr 01, 2024 Date of Discharge: Apr 04, 2024 Reason For Admission: Induction of Labor Procedures: NST Intrapartum Procedures: Vacuum Extraction, Episiotomy (MLE) Procedures: Rubella Ig, Hct/date: (04/04/24), Hgb/date: (04/04/24) Operative Complicat: Others (MLE) Discharge Diagnosis: Term -Delivered Discharge Information: Activity (as tolerated, no heavy lifting and nothing in the vagina for 6 weeks), Diet (Rx sent), Medications (Rx sent), Instructions (Routine), Discharge to (Home), Accompanied by (partner), Discarge date (04/04/24) KARLOS ANN CNM Apr 04, 2024 08:18
--- NOTE | 2024-04-04 08:18 | DVHPN2 ---
Progress Note Date Seen: Apr 04, 2024 Subjective S: bleeding is less, eating food without issues, denies lightheaded/dizziness, pain well controlled with oral medications, no concerns with urinating, passing flatus, no BM yet, ambulating well, vital signs Vital Sign Date Time Temp Pulse Resp B/P (MAP) Pulse Ox O2 Delivery O2 Flow Rate FiO2 04/04/24 07:25 Room Air 04/04/24 03:00 98.0 73 20 130/86 (101) 97 98.0 Total Intake and Output 04/03/24 04/03/24 04/04/24 15:00 23:00 07:00 Output Total 1500 ml 800 ml Balance -1500 ml -800 ml medications Current Medications Medications Dose Ordered Sig/Cristy Route Start Time Stop Time Status Last Admin Dose Admin Acetaminophen 650 mg Q4HP PRN PO 04/03/24 06:15 04/03/24 19:17 650 MG Ondansetron HCl 4 mg Q4HPRN PRN PO 04/03/24 06:15 Docusate Sodium 200 mg HS PO 04/03/24 22:00 04/03/24 21:49 200 MG Ibuprofen 600 mg Q6HP PRN PO 04/04/24 00:00 04/04/24 00:25 600 MG laboratory and microbiology Laboratory Tests 04/04/24 03:38 04/01/24 22:52 Test 04/01/24 22:52 Range/Units Serum Glucose 83 74-106 mg/dL Objective O: VSS Chest: heart sounds normal and lung sounds clear bilaterally Abd: soft, non-tender, fundus at U/firm/midline, active bowel sounds, no rebound or guarding Perineum: sutures intact, edges well approximated, no erythema/edema noted Ext: Non-tender, No edema, 2+ BLE DTRs Lochia: minimal See lab results Problems(with codes): (1) At risk for infection associated with episiotomy (2) Vacuum-assisted vaginal delivery (3) Precipitous drop in hematocrit Assessment/Plan A: 24yo now PPD#1 s/p VAVD with MLE Rh+ Rubella Non-Immune Pain control with PO medications Bowel regimen P: D/C home today RN to give MMR vaccine prior to D/C Rx sent to pharmacy precautions and preeclampsia warning signs reviewed F/U with [facility] office in 2 weeks Plan discussed with: Patient, Spouse KARLOS ANN CNM Apr 04, 2024 08:17
[2024-04-04] MEDS ORDERED: PREN-96 PO (08:32)
[2024-04-04] MEDS ORDERED: DOCU-265 PO (08:32)
[2024-04-04] MEDS ORDERED: IBU600T PO (08:32)
[2024-04-04 09:00] VITALS: BP 116/72; PULSE 85; RESP 20; TEMP 97.7; O2SAT 97
[2024-04-04] MEDS: DERMOPLAST 60ML BOTTLE TOP PRN (09:46)
[2024-04-04] MEDS: WITCH HAZEL-GLYCERIN PAD TOP PRN (09:46)
[2024-04-04 11:30] VITALS: BP 123/75; PULSE 85; RESP 20; TEMP 98; O2SAT 97
[2024-04-04] MEDS: MEASLES, MUMPS & RUBELLA VAC(MMRII) 0.5ML SC ONE (12:08)
[2024-04-04 14:50] VITALS: BP 117/74; PULSE 70; RESP 18; TEMP 98; O2SAT 97
[2024-04-05 12:06] LABS: Treponema Pallidum Ab LC Non Reactive (Non Reactive)
== END 2024-04-04 14:50 | disposition home or self-care (01) | DRG 560 ==
LOC: LDRP 22:01 → OBSVTOIN 22:01 → LDRP 22:33
PROVIDERS: ADMIT Obstetrics & Gynecology; ATTEND Obstetrics & Gynecology
PROC: 10D07Z6 Extraction of Products of Conception, Vacuum, Via Natural or Artificial Opening (ICD-10-PCS; principal; 2024-04-03)
PROC: 0W8NXZZ Division of Female Perineum, External Approach (ICD-10-PCS; 2024-04-03)
PROC: 3E033VJ Introduction of Other Hormone into Peripheral Vein, Percutaneous Approach (ICD-10-PCS; 2024-04-03)
PROC: 3E0R3BZ Introduction of Anesthetic Agent into Spinal Canal, Percutaneous Approach (ICD-10-PCS; 2024-04-03)
PROC: 00HU33Z Insertion of Infusion Device into Spinal Canal, Percutaneous Approach (ICD-10-PCS; 2024-04-03)
DX: O13.4 Gestational [pregnancy-induced] hypertension without significant proteinuria, complicating childbirth (principal); Z37.0 Single live birth; R71.0 Precipitous drop in hematocrit; O69.81X0 Labor and delivery complicated by cord around neck, without compression, not applicable or unspecified; O99.214 Obesity complicating childbirth; Z3A.39 39 weeks gestation of pregnancy
CPT/HCPCS: 36415; 59025; 59200; 59409; 62282; 80053; 80307; 81001; 81002; 82570; 84156; 84550; 85025; 85379; 85384; 85610; 85730; 86592; 86780; 86803; 86850; 86900; 86901; 94760; 94762; 96360; 96361; 96365; 96366; 96372; G0378; J2590